=== PATIENT | female | born 1945 | race Caucasian/White ===

== ENCOUNTER 2018-04-01 19:37 | Emergency (ER) | payer BC ==
[~2018-04-01] VITALS: Ht 168.9 cm; Wt 52.3 kg
[2018-04-01 19:41] VITALS: TEMP 36.6; Ht 168.9 cm; Wt 52.3 kg
--- NOTE | 2018-04-01 20:42 | DIAGNOSTIC IMAGING REPORT ---
HEAD WITHOUT CONTRAST (CT) CLINICAL HISTORY: 72 years-old Female with CHI w/ n/v. Acute head injury status post fall TECHNIQUE: Multiple axial CT images of the head were obtained without contrast. A dose lowering technique was utilized adhering to the principles of ALARA. CT DOSE: 537.48 mGy.cm COMPARISON: None. FINDINGS: Cavum septum pellucidum. There is no acute intracranial hemorrhage, midline shift or abnormal extra-axial fluid collections. There is mild to moderate atrophy. Senescent calcifications of the lentiform nuclei are noted. Cerebral calcifications at the level of the skull base. No territorial ischemia. Partially calcified round circumscribed extra-axial mass at the vertex abutting the falx cerebri is seen on image 22 series 2 measuring 2.2 x 2.2 cm in AP and transverse dimension respectively. There is minimal mass effect upon the adjacent right frontal lobe without edema or midline shift. No hydrocephalus. Ill-defined 1.2 cm lucent lesion of the right temporal calvarium. Mastoid air cells and middle ear cavities are clear. Soft tissues are unremarkable. Orbits are symmetric. IMPRESSION: 1. No acute intracranial abnormality identified. 2. Hyperattenuating partially calcified 2.2 cm round extra-axial lesion abutting the falx cerebri near the vertex adjacent to the right frontal lobe suggests a calcified meningioma. 3. Indeterminate 1.2 cm lucent lesion of the right temporal calvarium. The above report was generated using voice recognition software. It may contain grammatical, syntax or spelling errors. Electronically signed by: Rio Acevedo M.D. 04/01/2018 8:41 PM Dictated Date/Time: 04/01/2018 8:36 PM
--- NOTE | 2018-04-01 21:55 | DIAGNOSTIC IMAGING REPORT ---
SACRUM COCCYX MIN 2 VIEWS, L-SPINE MIN 4 VIEWS ROUTINE HISTORY: 72 years-old Female LBP/sacral pain acute lumbar spine and sacral pain status post fall COMPARISON: None available TECHNIQUE: 5 views of the lumbar spine and 3 views of the sacrum and coccyx FINDINGS: LUMBAR SPINE: The bones appear mildly demineralized. 5 nonrib-bearing lumbar type vertebral segments. No acute fracture or subluxation is identified. Mild multilevel endplate spurring with moderate multilevel facet arthrosis. Mild intervertebral disc space narrowing at L5-S1. Atherosclerosis of the aorta. Moderate osteoarthritis about the bilateral hips. SACRUM/COCCYX: The bones appear mildly demineralized. No acute fracture or subluxation is identified. Moderate degenerative changes about the pubic symphysis. IMPRESSION: Mildly demineralized appearance of the bones without acute fracture or subluxation. The above report was generated using voice recognition software. It may contain grammatical, syntax or spelling errors. Electronically signed by: Rio Acevedo M.D. 04/01/2018 9:54 PM Dictated Date/Time: 04/01/2018 9:51 PM
[2018-04-01 23:01] VITALS: BP 134/84; PULSE 90; O2SAT 99
--- NOTE | 2018-04-02 01:11 | EMERGENCY ROOM VISIT NOTE ---
History First contact with patient: 19:48 Chief Complaint: FALL Stated Complaint: FELL,SORE BACK,HIT MY HEAD History of Present Illness The patient is a 72 year old female who presents to the Emergency Room with complaints of injuries after she fell backwards off of a set of bleachers, landing on her buttocks and hitting the back of her head off of the ground. There was no loss of consciousness, but the patient did report almost immediate nausea that has improved since the injury. The daughter was attempting to hold her as she was walking up the bleachers when she fell approximately 4 feet to the ground. The patient denies any aspirin or other blood thinner use. She rates her discomfort an 8 out of 10. She denies any neck pain. Review of Systems 10 system review was performed and was negative except for pertinent positives and negatives as indicated in history of present illness Past Medical/Surgical History Medical Problems: (1) Bronchitis Surgical Problems: (1) History of appendectomy (2) History of delivery (3) History of knee surgery (4) History of partial hysterectomy Family History FH: cancer FH: diabetes mellitus FH: gallbladder disease FH: heart disease FH: hypertension FH: kidney disease Social History Smoking Status: Current Every Day Smoker Alcohol Use: none Housing Status: lives alone Occupation Status: employed Current/Historical Medications No Active Prescriptions or Reported Meds Physical Exam Vital Signs Date Time Temp Pulse Resp B/P (MAP) Pulse Ox O2 Delivery O2 Flow Rate FiO2 04/01/18 23:01 90 134/84 99 04/01/18 21:55 85 16 137/84 94 04/01/18 19:41 36.6 93 18 140/85 97 Room Air Physical Exam CONSTITUTIONAL: Healthy and well nourished. Alert and oriented X 3 with positive affect. GCS 15. Patient does not appear in any acute distress. HEENT: Normocephalic, atraumatic. Pupils equal, round and reactive. No scalp hematomas or lacerations noted. NECK: Full active range of motion without discomfort. RESPIRATORY: Clear to auscultation bilaterally with no wheezing, crackles, rhonchi or stridor. CARDIOVASCULAR: Regular rate and rhythm with no murmurs, rubs or gallops. GASTROINTESTINAL: Bowel sounds present in all quadrants. Soft and nontender to palpation. MUSCULOSKELETAL: Examination shows generalized tenderness to palpation through the lower lumbar spine and sacral region. Pelvis stable with rock. Negative logroll. Negative straight leg raise. Pedal pulses are intact. INTEGUMENTARY: No rash or other significant dermatologic conditions noted. NEUROLOGIC: Upper and lower extremities are sensory intact. Medical Decision & Procedures ER Provider Diagnostic Interpretation: My interpretation of a noncontrast head CT does not show any acute fracture or intracranial bleed. A left frontal calcified meningioma is suspected, and described in the following radiologist report: HEAD WITHOUT CONTRAST (CT) CLINICAL HISTORY: 72 years-old Female with CHI w/ n/v. Acute head injury status post fall TECHNIQUE: Multiple axial CT images of the head were obtained without contrast. A dose lowering technique was utilized adhering to the principles of ALARA. CT DOSE: 537.48 mGy.cm COMPARISON: None. FINDINGS: Cavum septum pellucidum. There is no acute intracranial hemorrhage, midline shift or abnormal extra-axial fluid collections. There is mild to moderate atrophy. Senescent calcifications of the lentiform nuclei are noted. Cerebral calcifications at the level of the skull base. No territorial ischemia. Partially calcified round circumscribed extra-axial mass at the vertex abutting the falx cerebri is seen on image 22 series 2 measuring 2.2 x 2.2 cm in AP and transverse dimension respectively. There is minimal mass effect upon the adjacent right frontal lobe without edema or midline shift. No hydrocephalus. Ill-defined 1.2 cm lucent lesion of the right temporal calvarium. Mastoid air cells and middle ear cavities are clear. Soft tissues are unremarkable. Orbits are symmetric. IMPRESSION: 1. No acute intracranial abnormality identified. 2. Hyperattenuating partially calcified 2.2 cm round extra-axial lesion abutting the falx cerebri near the vertex adjacent to the right frontal lobe suggests a calcified meningioma. 3. Indeterminate 1.2 cm lucent lesion of the right temporal calvarium. X-rays of the lumbar spine and sacrum does not show any acute fractures. Radiologist report is as follows: SACRUM COCCYX MIN 2 VIEWS, L-SPINE MIN 4 VIEWS ROUTINE HISTORY: 72 years-old Female LBP/sacral pain acute lumbar spine and sacral pain status post fall COMPARISON: None available TECHNIQUE: 5 views of the lumbar spine and 3 views of the sacrum and coccyx FINDINGS: LUMBAR SPINE: The bones appear mildly demineralized. 5 nonrib-bearing lumbar type vertebral segments. No acute fracture or subluxation is identified. Mild multilevel endplate spurring with moderate multilevel facet arthrosis. Mild intervertebral disc space narrowing at L5-S1. Atherosclerosis of the aorta. Moderate osteoarthritis about the bilateral hips. SACRUM/COCCYX: The bones appear mildly demineralized. No acute fracture or subluxation is identified. Moderate degenerative changes about the pubic symphysis. IMPRESSION: Mildly demineralized appearance of the bones without acute fracture or subluxation. ED Course Patient history and physical exam were performed. Nurse's notes were reviewed. Vital signs were reviewed and were grossly normal. The patient refused any analgesics. Given the patient's age, I recommended CT of the head, which was performed and did not show any acute findings. A possible calcified hemangioma was noted. X-rays of the lumbar spine, sacrum and coccyx were also normal. I did discuss CT findings with the patient and daughter. The patient reports that she currently does not have a PCP. Her daughter reports that she will call Dr. Miller's office in the morning for follow-up appointment and follow- up. The patient was instructed to return to the emergency department for any progressively worsening symptoms. The patient reports that she will take Motrin as needed for pain. The patient was happy with plan of care, voiced understanding of all discharge instructions, and denied any significant discomfort at the conclusion of my exam. Case was also discussed with Dr. Kaufman, ED attending physician, who agrees with workup and plan of care. Medical Decision Head Trauma GCS Score: 15 Medication Reconcilliation Current Medication List: was personally reviewed by me Blood Pressure Screening Patient's blood pressure: Normal blood pressure Impression Primary Impression: Closed head injury Additional Impressions: Acute lumbar myofascial strain Pelvic contusion Calcified cerebral meningioma Departure Information Prescriptions No Active Prescriptions or Reported Meds Referrals No Doctor, Assigned (PCP) Patient Instructions My [facility] Problem Qualifiers Primary Impression: Closed head injury Encounter type: initial encounter Qualified Codes: S09.90XA - Unspecified injury of head, initial encounter Additional Impressions: Acute lumbar myofascial strain Encounter type: initial encounter Qualified Codes: S39.012A - Strain of muscle, fascia and tendon of lower back, initial encounter Pelvic contusion Encounter type: initial encounter Qualified Codes: S30.0XXA - Contusion of lower back and pelvis, initial encounter
== END 2018-04-01 22:50 | disposition home or self-care (01) ==
LOC: C.EDB 19:38 → C.EDD 22:50
DX: S09.90XA Unspecified injury of head, initial encounter (principal); S39.012A Strain of muscle, fascia and tendon of lower back, initial encounter; S30.0XXA Contusion of lower back and pelvis, initial encounter; W19.XXXA Unspecified fall, initial encounter; C70.0 Malignant neoplasm of cerebral meninges; F17.200 Nicotine dependence, unspecified, uncomplicated

== ENCOUNTER 2019-09-23 15:22 | Inpatient (IN) ==
--- OUTSIDE RECORDS SUMMARY | 2019-09-23 15:25 | External Medical Summary | Continuity of Care Document ---
:1945 Author Name Rosenda Luna, Provider Address Unavailable Unavailable , Care Team Providers Name Role Phone Devyn Hunt DO Unavailable [email or web address] HUNT Unavailable Unavailable Problems Active medical history not documented Allergies and Adverse Reactions Allergy history not documented Medications Medications not documented Procedures Procedures not documented Immunizations Immunizations not documented Plan of Treatment Planned Observations Planned Goals not documented Results No Known Results Results not documented Encounters Appointment; Devyn Hunt DO 14-Apr-2019 15:20 Encounter Diagnosis: Problem not documented
[2019-09-23] MEDS ORDERED: ONDANSETRON INJ 2 MG/ML 2 ML VIAL IV STA (15:36)
[2019-09-23] MEDS ORDERED: ACETAMINOPHEN 1,000 MG/100 ML VIAL IV STA (15:36)
[2019-09-23] MEDS ORDERED: KETOROLAC TROMETHAMINE 15 MG/ML VIAL IV ONE (15:36)
--- NOTE | 2019-09-23 15:43 | Emergency Department Note ---
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 She states that she fell on her right hip, and she complains of constant, severe right hip pain. The patient notes that movement exacerbates the pain. She complains of right elbow pain. The patient denies any neck pain, head pain, chest pain, and shoulder pain. She notes that she smokes cigarettes. The patient denies any alcohol and drug use. She denies the use of any blood thinners. Home Medications Home Medications Medication Instructions Recorded Confirmed Type No Known Home Medications 09/23/19 09/23/19 History Allergies Allergy/AdvReac Type Severity Reaction Status Date / Time Sulfa (Sulfonamide Allergy Unknown . Unverified 09/23/19 16:48 Antibiotics) Past Med/Surg History Medical History Bronchitis Acute lumbar myofascial strain (Acute) Calcified cerebral meningioma (Acute) Closed head injury (Acute) Pelvic contusion (Acute) Surgical History History of partial hysterectomy History of delivery History of appendectomy History of knee surgery Social History Preferred Language: Kenyan Feels Safe at Home: Yes Smoking Status: Current every day smoker Review of Systems See HPI for pertinent positives & negatives. and A total of 10 systems reviewed and were otherwise negative Physical Exam Vital Signs Vital Signs - 24 hr 09/23/19 15:41 09/23/19 16:33 09/23/19 17:33 Temperature 36.7 C Temperature Source Oral Sepsis Recent Fever Within 48 Hours No Sepsis New/Unexplained Change in Mental Status No Sepsis Action Taken by Nursing No Action Required Pulse Rate 85 Pulse Rate [Apical] 77 81 Respiratory Rate 20 18 18 Blood Pressure 155/78 H Blood Pressure [Left Arm] 150/78 H Blood Pressure Mean 103 Blood Pressure Mean [Left Arm] 102 Pulse Oximetry 97 100 95 Oxygen Delivery Method Room Air Room Air Room Air 09/23/19 18:55 Temperature Temperature Source Sepsis Recent Fever Within 48 Hours Sepsis New/Unexplained Change in Mental Status Sepsis Action Taken by Nursing Pulse Rate Pulse Rate [Apical] 75 Respiratory Rate 18 Blood Pressure Blood Pressure [Left Arm] 115/64 Blood Pressure Mean Blood Pressure Mean [Left Arm] 81 Pulse Oximetry 97 Oxygen Delivery Method Room Air GENERAL: The patient is awake and alert. She is very anxious appearing and appears to be in very significant pain. EYES: The conjunctivae are clear. The pupils are round and reactive. EARS, NOSE, MOUTH AND THROAT: The nose is without any evidence of any deformity. Mucous membranes are moist tongue is midline NECK: The neck is nontender and supple. RESPIRATORY: Normal respiratory effort is noted there is no evidence of wheezing rhonchi or rales CARDIOVASCULAR: Regular rate and rhythm noted there no murmurs rubs or gallops normal S1 normal S2 GASTROINTESTINAL: The abdomen is soft. Bowel sounds are present in all quadrants. Abdomen is nontender BACK: No midline tenderness or or step-off noted range of motion in flexion extension as well as rotation no signs of muscle spasm noted MUSCULOSKELETAL/EXTREMITIES: The right lower extremity is held in slight flexion. There was minimal shortening but no significant rotation. There is tenderness upon any range of motion testing of the right hip. SKIN: There is no obvious evidence of any rash. There are no petechiae, pallor or cyanosis noted. NEUROLOGIC: Patient is awake alert and oriented x3. Course 1531: The patient was evaluated in room C07. A complete history and physical exam was performed. 174: I reevaluated the patient, and she was feeling improved. 1807: I spoke with Dr. Pink, [facility] orthopedics. He will further evaluate the patient. Administered Medications Discontinued Medications Azithromycin (Zithromax) 500 mg PO NOW ONE Stop: 09/23/19 19:05 Last Admin: 09/23/19 19:18 Dose: Not Given Documented by: [id number] Acetaminophen (Ofirmev) 1,000 mg in 100 mls @ 400 mls/hr IV NOW STA Stop: 09/23/19 15:50 Last Infusion: 09/23/19 16:15 Dose: 0 mls/hr Documented by: [id number] Admin: 09/23/19 15:57 Dose: 400 mls/hr Documented by: [id number] Ketorolac Tromethamine (Toradol) 10 mg IV NOW ONE Stop: 09/23/19 15:37 Last Admin: 09/23/19 15:57 Dose: 10 mg Documented by: [id number] Ondansetron HCl (Zofran) 4 mg IV NOW STA Stop: 09/23/19 15:37 Last Admin: 09/23/19 15:57 Dose: 4 mg Documented by: [id number] Medical Decision Making Differential Diagnosis Etiologies such as fracture, dislocation, neurovascular compromise, compartment syndrome, soft tissue injury, as well as others were entertained. Medical Records Attestation: I reviewed the patient's medical records. Home Medications Current Medication List: was personally reviewed by me Laboratory Data Attestation: I reviewed the patient's lab results. Result diagrams: 09/23/19 15:48 09/23/19 15:48 Lab Results 09/23/19 09/23/19 09/23/19 Range/Units 15:48 15:48 15:48 WBC 13.93 H (4.8-10.8) K/uL RBC 4.58 (4.2-5.4) M/uL Hgb 14.4 (12.0-16.0) g/dL Hct 40.9 (37-47) % MCV 89.3 (80-100) fL MCH 31.4 (25-34) pg MCHC 35.2 (32-36) g/dL RDW Std Deviation 44.9 (36.4-46.3) fL RDW Coeff of Janki 13.6 (11.5-14.5) % Plt Count 232 (130-400) K/uL MPV 10.3 (7.4-10.4) fL Immature Gran % (Auto) 0.3 % Neut % (Auto) 88.6 % Lymph % (Auto) 5.2 % [place] % (Auto) 5.8 % Eos % (Auto) 0.0 % Baso % (Auto) 0.1 % Immature Gran # (Auto) 0.04 H (0.00-0.02) K/uL Neut # (Auto) 12.35 H (1.4-6.5) K/uL Lymph # (Auto) 0.72 L (1.2-3.4) K/uL Rincon # (Auto) 0.81 H (0.11-0.59) K/uL Eos # (Auto) 0.00 (0-0.5) K/uL Baso # (Auto) 0.01 (0-0.2) K/uL PT 10.3 (9.0-12.0) Seconds INR 1.0 (0.9-1.1) APTT 24.8 (21.0-31.0) Seconds PTT Ratio 0.9 Sodium 136 (136-145) mmol/L Potassium 3.7 (3.5-5.1) mmol/L Chloride 105 (98-107) mmol/L Carbon Dioxide 24 (21-32) mmol/L Anion Gap 8.0 (3-11) BUN 12 (7-18) mg/dl Creatinine 0.61 (0.6-1.2) mg/dl Est Cr Clr Drug Dosing 59.0 ml/min Est GFR ( Amer) 104.2 Est GFR (Non-Af Amer) 89.9 BUN/Creatinine Ratio 19.8 (10-20) Glucose 164 H (70-99) mg/dl Calcium 9.2 (8.5-10.1) mg/dl Troponin I < 0.015 (0-0.045) ng/ml Urine Color Urine Appearance (Clear) Urine pH (4.5-7.5) Ur Specific [place] (1.000-1.030) Urine Protein (Negative) Urine Glucose (UA) (Negative) Urine Ketones (Negative) Urine Blood (Negative) Urine Nitrite (Negative) Urine Bilirubin (Negative) Urine Urobilinogen (Negative) Ur Leukocyte Esterase (Negative) Blood Type Antibody Screen 09/23/19 09/23/19 Range/Units 16:42 18:38 WBC (4.8-10.8) K/uL RBC (4.2-5.4) M/uL Hgb (12.0-16.0) g/dL Hct (37-47) % MCV (80-100) fL MCH (25-34) pg MCHC (32-36) g/dL RDW Std Deviation (36.4-46.3) fL RDW Coeff of Janki (11.5-14.5) % Plt Count (130-400) K/uL MPV (7.4-10.4) fL Immature Gran % (Auto) % Neut % (Auto) % Lymph % (Auto) % [place] % (Auto) % Eos % (Auto) % Baso % (Auto) % Immature Gran # (Auto) (0.00-0.02) K/uL Neut # (Auto) (1.4-6.5) K/uL Lymph # (Auto) (1.2-3.4) K/uL R[place] # (Auto) (0.11-0.59) K/uL Eos # (Auto) (0-0.5) K/uL Baso # (Auto) (0-0.2) K/uL PT (9.0-12.0) Seconds INR (0.9-1.1) APTT (21.0-31.0) Seconds PTT Ratio Sodium (136-145) mmol/L Potassium (3.5-5.1) mmol/L Chloride (98-107) mmol/L Carbon Dioxide (21-32) mmol/L Anion Gap (3-11) BUN (7-18) mg/dl Creatinine (0.6-1.2) mg/dl Est Cr Clr Drug Dosing ml/min Est GFR ( Amer) Est GFR (Non-Af Amer) BUN/Creatinine Ratio (10-20) Glucose (70-99) mg/dl Calcium (8.5-10.1) mg/dl Troponin I (0-0.045) ng/ml Urine Color Yellow Urine Appearance Clear (Clear) Urine pH 5.5 (4.5-7.5) Ur Specific [place] 1.014 (1.000-1.030) Urine Protein Negative (Negative) Urine Glucose (UA) Negative (Negative) Urine Ketones Negative (Negative) Urine Blood Negative (Negative) Urine Nitrite Negative (Negative) Urine Bilirubin Negative (Negative) Urine Urobilinogen Negative (Negative) Ur Leukocyte Esterase Negative (Negative) Blood Type O Positive Antibody Screen NEGATIVE Imaging Data Radiologist's Impression: Radiology results as stated below per my review and the radiologist's interpretation: XR chest 1V portable CLINICAL HISTORY: Fall. COMPARISON STUDY: No previous studies for comparison. FINDINGS: Lung volumes are normal. Lungs are clear. There is no pneumothorax or pleural effusion. Cardiac size is normal. Mediastinal contours are normal. There is no evidence for pulmonary edema. Patient is mildly rotated. IMPRESSION: No acute cardiopulmonary findings. Electronically signed by: Damián Joyce M.D. 09/23/2019 4:38 PM XR hip RT 2V w pelvis CLINICAL HISTORY: fall COMPARISON: None FINDINGS: The sacroiliac joints and symphysis pubis are intact. There is cortical irregularity of the superior aspect of the right femoral neck. This raises the possibility of a nondisplaced fracture. There is moderate to severe bilateral hip osteoarthritis. Asymmetric density adjacent to the right hip is noted. IMPRESSION: 1. Cortical irregularity of the superior aspect of the right femoral neck which raises the possibility of a nondisplaced fracture. A CT of the right hip is recommended. 2. Moderate to severe bilateral hip osteoarthritis. 3. Possible right hip soft tissue swelling. Electronically signed by: Damián Joyce M.D. 09/23/2019 4:[address] hip RT wo con HISTORY: 74 years-old Female fall acute right hip pain status post fall COMPARISON: Pelvis and right hip radiographs of same day TECHNIQUE: Multiple axial CT images of the right hip were obtained without the use of IV contrast. A dose lowering technique was used consistent with the principals of ALARA. FINDINGS: Acute nondisplaced intertrochanteric fracture of the right hip without angulation or impaction. Moderate to severe right hip osteoarthritis with chondrocalcinosis. Prominent subcortical cystic changes of the femoral head are also noted. The acetabulum and imaged right hemipelvis appear intact. Calcinosis of the pubic symphysis. Urinary bladder distention. Subcutaneous edema/hematoma lateral to the right hip. No large intramuscular hematoma. Small right hip joint effusion. Arterial calcifications are noted. IMPRESSION: 1. Acute nondisplaced intratrochanteric fracture of the proximal right femur. 2. Moderate to severe right hip osteoarthritis. The above report was generated using voice recognition software. It may contain grammatical, syntax or spelling errors. Electronically signed by: Rio Acevedo M.D. 09/23/2019 5:50 PM ECG Data Attestation: I personally reviewed and interpreted this ECG as follows: Indication: + other (fall) Rate (beats per minute): 79 Rhythm: + normal sinus ECG Findings: + Other (anterior T wave inversions note) Comparison ECG Date: no prior available Blood Pressure Blood Pressure Findings: Elevated blood pressure Blood Pressure Disposition: further management by hospitalist (further managment by orthopedist) MDM Narrative The patient is a 74-year-old female who presented to the emergency department for an evaluation of right hip pain. The patient fell while she was at work. She had very significant right hip pain. Radiographic studies revealed a right subcapital hip fracture. She was treated with IV pain medication. I discussed the patient's laboratory and radiographic studies with her. Given the degree of her fracture I discussed her case with the on-call orthopedic physician. They have agreed to evaluate the patient in the emergency department for further management disposition. The patient was feeling much better on subsequent reevaluation. Likely she will require surgical intervention of this right hip fracture. I discussed this with the patient. Impression & Plan Closed fracture of right hip Discharge Plan Visit Data *Final* Discharge Date/Time: 09/23/19 20:08 Chief Complaint: Hip Pain Stated Complaint: R HIP PAIN ED Provider: Blair Paredes Discharge Problem: Closed fracture of right hip Patient Disposition: Admitted As Inpatient Discharge Instructions Interventions: ED Discharge Assessment Last Done: 09/23/19 20:08 Discharge Problem: Closed fracture of right hip Qualifiers: Encounter type: initial encounter Qualified Code(s): S72.001A - Fracture of unspecified part of neck of right femur, initial encounter for closed fracture The awildaibdee's documentation has been prepared under my direction and personally reviewed by me in its entirety. I confirm that the note above accurately refl ects all work, treatment, procedures, and medical decision making performed by me.
[2019-09-23 16:00] LABS: Basophils # (auto) 0.01 K/uL (0-0.2); Basophils % (auto) 0.1 %; Hematocrit (blood only) 40.9 % (37-47); Hemoglobin 14.4 g/dL (12.0-16.0); Immature Granulocytes # (auto) 0.04 K/uL (0.00-0.02); Immature Granulocytes % (auto) 0.3 %; Lymphocytes # (auto) 0.72 K/uL (1.2-3.4); Lymphocytes % (auto) 5.2 %; Mean Corpuscular Hemoglobin 31.4 pg (25-34); Mean Corpuscular Hgb Conc 35.2 g/dL (32-36); Mean Corpuscular Volume 89.3 fL (80-100); Mean Platelet Volume 10.3 fL (7.4-10.4); Monocytes # (auto) 0.81 K/uL (0.11-0.59); Monocytes % (auto) 5.8 %; Neutrophils # (auto) 12.35 K/uL (1.4-6.5); Neutrophils % (auto) 88.6 %; Platelet Count 232 K/uL (130-400); RDW Coefficient of Variation 13.6 % (11.5-14.5); RDW Standard Deviation 44.9 fL (36.4-46.3); Red Blood Count 4.58 M/uL (4.2-5.4); White Blood Count 13.93 K/uL (4.8-10.8)
[2019-09-23 16:09] LABS: Partial Thromboplastin Ratio 0.9; Partial Thromboplastin Time 24.8 Seconds (21.0-31.0); Prothrombin Time 10.3 Seconds (9.0-12.0)
[2019-09-23 16:15] LABS: BUN Creatinine Ratio 19.8 (10-20); Blood Urea Nitrogen 12 mg/dl (7-18); Calcium 9.2 mg/dl (8.5-10.1); Carbon Dioxide 24 mmol/L (21-32); Chloride 105 mmol/L (98-107); Est GFR (African American) 104.2; Est GFR (Non-African American) 89.9; Glucose 164 mg/dl (70-99); Potassium 3.7 mmol/L (3.5-5.1); Sodium 136 mmol/L (136-145)
[2019-09-23 16:21] LABS: Troponin I < 0.015 ng/ml (0-0.045)
--- NOTE | 2019-09-23 16:39 | XRay Report ---
XR chest 1V portable CLINICAL HISTORY: Fall. COMPARISON STUDY: No previous studies for comparison. FINDINGS: Lung volumes are normal. Lungs are clear. There is no pneumothorax or pleural effusion. Car diac size is normal. Mediastinal contours are normal. There is no evidence for pulmonary edema. Patie nt is mildly rotated. IMPRESSION: No acute cardiopulmonary findings. Electronically signed by: Damián Joyce M.D. 09/23/2019 4:38 PM
--- NOTE | 2019-09-23 16:43 | XRay Report ---
XR hip RT 2V w pelvis CLINICAL HISTORY: fall COMPARISON: None FINDINGS: The sacroiliac joints and symphysis pubis are intact. There is cortical irregularity of th e superior aspect of the right femoral neck. This raises the possibility of a nondisplaced fracture. There is moderate to severe bilateral hip osteoarthritis. Asymmetric density adjacent to the right hi p is noted. IMPRESSION: 1. Cortical irregularity of the superior aspect of the right femoral neck which raises the possibilit y of a nondisplaced fracture. A CT of the right hip is recommended. 2. Moderate to severe bilateral hip osteoarthritis. 3. Possible right hip soft tissue swelling. Electronically signed by: Damián Joyce M.D. 09/23/2019 4:42 PM
--- NOTE | 2019-09-23 17:52 | CT Scan Report ---
CT hip RT wo con HISTORY: 74 years-old Female fall acute right hip pain status post fall COMPARISON: Pelvis and right hip radiographs of same day TECHNIQUE: Multiple axial CT images of the right hip were obtained without the use of IV contrast. A dose lowering technique was used consistent with the principals of ALARA. FINDINGS: Acute nondisplaced intertrochanteric fracture of the right hip without angulation or impaction. Moder ate to severe right hip osteoarthritis with chondrocalcinosis. Prominent subcortical cystic changes o f the femoral head are also noted. The acetabulum and imaged right hemipelvis appear intact. Calcinos is of the pubic symphysis. Urinary bladder distention. Subcutaneous edema/hematoma lateral to the rig ht hip. No large intramuscular hematoma. Small right hip joint effusion. Arterial calcifications are noted. IMPRESSION: 1. Acute nondisplaced intratrochanteric fracture of the proximal right femur. 2. Moderate to severe right hip osteoarthritis. The above report was generated using voice recognition software. It may contain grammatical, syntax o r spelling errors. Electronically signed by: Rio Acevedo M.D. 09/23/2019 5:50 PM
[2019-09-23] MEDS ORDERED: AZITHROMYCIN 250 MG TAB PO ONE (19:04)
[2019-09-23 19:15] LABS: Appearance Urine Clear (Clear); Bilirubin Urine Negative (Negative); Blood Urine Negative (Negative); Color Urine Yellow; Glucose Urine UA Negative (Negative); Ketones Urine Negative (Negative); Leukocyte Esterase Urine Negative (Negative); Nitrite Urine Negative (Negative); Protein Urine Negative (Negative); Specific Gravity Urine 1.014 (1.000-1.030); Urobilinogen Urine Negative (Negative); pH Urine 5.5 (4.5-7.5)
--- NOTE | 2019-09-23 20:12 | History and Physical Report ---
DATE OF ADMISSION: 09/23/2019 CHIEF COMPLAINT: Right hip pain. 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 Elbow was fine. She was able to walk afterwards but had significant right hip pain. She was brought to the ER where evaluation revealed a fracture. She has seen a chiropractor previously for soreness in her hips. She denies prior history of right hip injuries. Her chiropractor told her that she did have arthritis in her hips. Pain is in the right groin currently. PAST MEDICAL HISTORY: Significant for shingles and Lyme disease. PAST SURGICAL HISTORY: Appendectomy, tonsillectomy, hysterectomy, right knee surgery. ALLERGIES: SULFA, REACTION UNKNOWN. REVIEW OF SYSTEMS: She has had Lyme disease, shingles, occasional irregular heartbeat. She does not see a regular medical doctor. She denies metal allergy, bleeding, blood clots, heart attack, stroke, lung disease, cancer, diabetes, heart attack. MEDICATIONS: None. SOCIAL HISTORY: She does not drink but smokes half a pack of cigarettes for the past 45 years. PHYSICAL EXAMINATION: MUSCULOSKELETAL: The right hip is nontender, swollen or ecchymotic. She is unable to do a leg lift. She can bend her knee about 30 degrees, but has pain in the right hip. The remainder of the right lower extremity is nontender with 1+ dorsalis pedis and posterior tibial pulses. 5/5 ankle and toe plantar flexion and dorsiflexion strength with normal sensation in the right foot. She can move both upper extremities without difficulty as well as her left leg. HEAD: Atraumatic. RESPIRATORY: Breath sounds are distant but chest is clear. HEART: Regular in rate and rhythm. I do not detect an audible murmur. ABDOMEN: Soft, nontender with active bowel sounds. LABORATORY VALUES: Reviewed. White count is 14, likely secondary to stress. She is not anemic. PT/INR within normal limits. PRP is noted. Glucose is high. UA negative. Chest x-ray negative. X-rays of the hip as well as a CT show bilateral hip arthritis with decreased bone density. There is a nondisplaced fracture on the anterior aspect of the right hip. This is low on the neck and high on the intertrochanteric region and is probably a nondisplaced basicervical type fracture. IMPRESSION: 1. Nondisplaced right hip basicervical versus intertrochanteric fracture of the right hip. 2. History of tobacco abuse and probable osteoporosis. PLAN: Findings are discussed. I have recommended admission to the hospital and surgery. Surgery was done to promote mobility and prevent fracture displacement. We talked about the risks of nonsurgical management. An informed consent was obtained. She is educated about the surgical procedure, risks, benefits, rehab and recovery. She will be admitted to my service and n.p.o. after midnight with medicine consulting. Plan will be for short troch nail tomorrow morning. SCDs for DVT prophylaxis. I did discuss with her that she has arthritis of her hip, which is the likely cause of her soreness. I think given the situation that fracture fixation in the absence of substantial ongoing hip arthritic complaints is a reasonable consideration, particularly given the fracture geometry being more of an intertrochanteric fracture versus a femoral neck type injury.
[2019-09-23] MEDS ORDERED: ONDANSETRON INJ 2 MG/ML 2 ML VIAL IV PRN (20:22)
[2019-09-23] MEDS ORDERED: MoRPHine SULFATE 2 MG/ML CARP IV PRN (20:22)
[2019-09-23] MEDS ORDERED: BISACODYL 10 MG SUPP PR PRN (20:22)
[2019-09-23] MEDS ORDERED: NALOXONE HCL 0.4 MG/1 ML VIAL/CARP IV PRN (20:22)
[2019-09-23] MEDS ORDERED: MAGNESIUM HYDROXIDE SUSP 30 ML UDC PO PRN (20:22)
--- NOTE | 2019-09-23 20:33 | Consultation Report ---
DATE OF CONSULTATION: 09/23/2019 CHIEF COMPLAINT: Status post fall and right hip pain. HISTORY OF PRESENT ILLNESS: This is a 74-year-old female with past medical history significant for Lyme disease and [place] infection, not on any medications currently and has not seen a doctor for many, many years, comes with a fall and right hip fracture. 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 She was out of her vehicle and on the pavement in the parking place when she slipped and fell down around 9:00 a.m. in the morning. With difficulty, she was able to get up. She did not want to come to the hospital until her work is done because it is a busy season and came here and imaging studies shows acute nondisplaced intertrochanteric fracture of the proximal right femur. Seen by orthopedics. Currently, she says when she is not moving, her pain is under control and she also received pain medications in the ER. She does not like to be on narcotics. She lives alone. She moved into a new house recently and that is why she is not sleeping much because of new place. Her appetite is not great generally. She smokes half a pack of cigarettes since she was 19 years old. Denies any headache, no loss of consciousness, no blurred vision, no earache, no runny nose, no sore throat, no cough, no chest pain, no shortness of breath.She was nauseous earlier. No abdominal pain. Once in a while, she gets constipated, but right now her bowels are moving fine. No black stools or hematochezia. Normal bladder movements. No hematuria or burning micturition, no swelling in the legs, no rash. She says she ambulates a lot. Most of the time, she is on her feet most of the day for her work. She says she does not get short of breath walking up hill. She states she can easily walk 2 blocks without stopping. Currently resting comfortably and hemodynamically stable. ALLERGIES: SULFA ANTIBIOTICS. PAST MEDICAL HISTORY: As mentioned above. PAST SURGICAL HISTORY: She had right knee surgery, appendectomy, partial hysterectomy, tonsillectomy, left foot ingrown nail. MEDICATIONS: None. FAMILY HISTORY: Mother at age of 91. She had CABG and CHF and diabetes. Father had stroke. One brother had stroke. Another brother had cardiac stents. SOCIAL HISTORY: Lives alone. Smokes half pack a day since 55 years. Denies alcohol and drug use. REVIEW OF SYMPTOMS: As per HPI. Rest of the review of symptoms is negative. PHYSICAL EXAMINATION: GENERAL: The patient is of somewhat thin built, not in acute distress. VITAL SIGNS: Temperature 36.7, pulse 75, respiratory rate 18, blood pressure 115/64, oxygen 97% on room air. HEENT: No pallor, no icterus. Pupils equal, round, reactive to light. Extraocular muscles intact. NECK: No JVD, no neck masses, no carotid bruit. CARDIOVASCULAR: S1, S2 heard, regular rate and rhythm, no murmur, no gallop. RESPIRATORY SYSTEM: Normal AP diameter. No accessory muscle use. No wheezing, no crackles. ABDOMEN: Soft, bowel sounds present, nontender. No distention, no guarding, no rigidity. CENTRAL NERVOUS SYSTEM: Alert and awake and oriented. Cranial nerves II-XII grossly intact. Nonfocal. EXTREMITIES: Right lower extremity is slightly shortened and externally rotated and painful on movement. No erythema. No edema seen. LABORATORY DATA: WBC 13.9, hemoglobin 14.4, hematocrit 40.9, platelets 232. PT 10.3, INR 1, APTT 24.8. Sodium 136, potassium 3.7, chloride 105, bicarbonate 24, BUN 12, creatinine 0.6, serum glucose 164, calcium 9.2. Troponin I less than 0.015. Urinalysis negative. Chest x-ray, no acute findings. Hip and pelvic x-ray; cortical irregularity of the superior aspect of the right femoral neck, which raises the possibility of a nondisplaced fracture. CT of the right hip is recommended. [id number] bilateral hip osteoarthritis, possible right hip soft tissue swelling. Right hip CT scan without contrast; acute nondisplaced intertrochanteric fracture of the proximal right femur, [id number] right hip osteoarthritis. ELECTROCARDIOGRAM: Normal sinus rhythm with a rate of 79, nonspecific T-wave abnormalities, no acute ST-T changes seen. ASSESSMENT AND PLAN: This is a 74-year-old female who presents with mechanical fall and right hip fracture. 1. Mechanical fall and right hip fracture. The patient has no significant past medical history. She says she is very active and she ambulates a lot every day at her work. Except for tobacco abuse, no risk factors. Laboratories are all fine. CBC and electrolytes are fine. Urinalysis negative. Chest x-ray and EKG are fine. The patient should be at acceptable risk to proceed with surgery. Post-surgery management as per orthopedics. N.p.o. after midnight. Gentle fluids, pain control with Tylenol and Toradol. 2. Deep venous thrombosis prophylaxis as per orthopedics. 3. Disposition: Admit to medical floor. Physical therapy and occupational therapy and further disposition as per orthopedics. MTDD
[2019-09-23] MEDS: DOCUSATE SODIUM/SENNA 50/8.6MG TAB PO SCH (21:16)
[2019-09-23] MEDS: D5W AND 1/2NSS 1,000 ML IV SCH (21:30)
[2019-09-24] MEDS ORDERED: CEFAZOLIN 2000MG 2,000 MG/15 ML SYR IV SCH (06:00)
--- NOTE | 2019-09-24 07:54 | Anesthesiology Consultation ---
Date of Service September 24, 2019 Assessment & Plan (1) Encounter for pre-operative examination: Chart Review Chart Review: Acceptable Risk for Surgery Consults Requested none ASA ASA3 Proposed Anesthesia Anesthesia Type: MAC Spinal Risk / Benefits Reviewed With: PT / POA / Parent / Guardian, Accepts Plan and Informed Consent Obtained History Surgery Operation Date: 09/24/19 10:30 Proposed Procedures p Intramedullary Edwar Femur - Taiwo Pink MD Height/Weight Height: 5 ft 6 in Weight: 50 kg Allergies Allergy/AdvReac Type Severity Reaction Status Date / Time Sulfa (Sulfonamide Allergy Unknown . Unverified 09/23/19 16:48 Antibiotics) Medications Home Medications Medication Instructions Recorded Confirmed Last Taken No Known Home Medications 09/23/19 09/23/19 Unknown Active Medications Generic Name Dose Route Start Last Admin Trade Name Freq PRN Reason Stop Dose Admin Dextrose/Sodium Chloride 1,000 mls @ 75 mls/hr 09/23/19 20:22 09/23/19 21:30 D5w And 1/2nss IV 10/23/19 20:21 75 mls/hr .[id number] KAROLINA Administration Senna/Docusate Sodium 2 tab 09/23/19 21:00 09/23/19 21:16 Senokot S PO 10/23/19 20:59 Not Given HS KAROLINA NPO Date Last Intake of Fluids: 09/23/19 Time Last Intake of Fluids: 23:59 Date Last Intake of Solids: 09/23/19 Time Last Intake of Solids: 23:59 Past Medical History Medical History Bronchitis Acute lumbar myofascial strain (Acute) Calcified cerebral meningioma (Acute) Closed head injury (Acute) Pelvic contusion (Acute) Exercise / Class Metabolic Activity II 4-5 Yardwork/Stairs/Walk up hill Past Surgical History Surgical History History of partial hysterectomy History of delivery History of appendectomy History of knee surgery Past Anesthesia History No Hx of Anesthesia Complications and No Family Hx of Anesthesia Complications History of PONV No Hx of PONV and No Hx of Motion Sickness Social History Smoking Status: Current every day smoker tobacco type: cigarettes Smoking cigarettes per day: 10 Hx Alcohol Use: No Hx Substance Use: No Physical Exam Vital Signs Last Vital Signs Temp 97.9 F 09/24/19 07:49 Pulse 72 09/24/19 07:49 Resp 16 09/24/19 07:49 BP 127/73 09/24/19 07:49 Pulse Ox 96 09/24/19 07:49 ENMT Mouth: no dentition abnormality Thyromental Distance: > or= 3.5 Finger Breadths Mallampati Class: II Neck normal visual inspection Respiratory normal respiratory effort Auscultation: lungs clear to auscultation bilaterally Cardiovascular Rate/Rhythm: regular rate and regular rhythm Testing Laboratory Results 09/23/19 15:48 09/23/19 15:48 PT 10.3 Seconds (9.0-12.0) 09/23/19 15:48 INR 1.0 (0.9-1.1) 09/23/19 15:48 APTT 24.8 Seconds (21.0-31.0) 09/23/19 15:48 Urine Color Yellow 09/23/19 18:38 Urine Appearance Clear (Clear) 09/23/19 18:38 Urine pH 5.5 (4.5-7.5) 09/23/19 18:38 Ur Specific [place] 1.014 (1.000-1.030) 09/23/19 18:38 Urine Protein Negative (Negative) 09/23/19 18:38 Urine Glucose (UA) Negative (Negative) 09/23/19 18:38 Urine Ketones Negative (Negative) 09/23/19 18:38 Urine Nitrite Negative (Negative) 09/23/19 18:38 Ur Leukocyte Esterase Negative (Negative) 09/23/19 18:38 Blood Type O Positive 09/23/19 16:42 Antibody Screen NEGATIVE 09/23/19 16:42 Electrocardiogram Date: 09/23/19 Normal sinus rhythm, rate 79 bpm Nonspecific T wave abnormality Abnormal ECG No previous ECGs available Chest X-Ray Date: 09/23/19 Findings: + NAD
[2019-09-24] MEDS ORDERED: ePHEDrine sulfate 50 MG/ML AMP IV PRN (08:06)
[2019-09-24] MEDS ORDERED: fentaNYL citrate 100 MCG/2 ML VIAL IV PRN (08:06)
[2019-09-24] MEDS ORDERED: ONDANSETRON INJ 2 MG/ML 2 ML VIAL IV PRN (08:06)
[2019-09-24] MEDS ORDERED: ATROPINE SULFATE 0.1 MG/ML 10ML SYR IV PRN (08:06)
[2019-09-24] MEDS ORDERED: fentaNYL citrate 100 MCG/2 ML VIAL ONE (08:08)
[2019-09-24] MEDS ORDERED: MIDAZOLAM HCL 1 MG/ML 2ML VIAL ONE ×2 (08:08→09:03)
--- NOTE | 2019-09-24 08:09 | History & Physical Bridge Note ---
Date of Service September 24, 2019 History & Physical Bridge Note I have examined the patient, reviewed the History & Physical and in the interval since the performance of the History & Physical I have noted the following changes of clinical significance: no changes noted
[2019-09-24] MEDS ORDERED: PROPOFOL IV EMULSION 10 MG/ML 20 ML VIAL IV ONE ×2 (08:13→10:21)
[2019-09-24] MEDS ORDERED: LIDOCAINE HCL 2% 2 ML VIAL/AMP(20MG/ML) INFIL ONE (08:13)
[2019-09-24] MEDS ORDERED: BUPIVACAINE 0.5 % 5 MG/1 ML PF 10ML VIAL ONE (08:55)
[2019-09-24] MEDS ORDERED: CEFAZOLIN 250 MG/ML 1 GM VIAL ONE (08:57)
[2019-09-24] MEDS ORDERED: ONDANSETRON INJ 2 MG/ML 2 ML VIAL ONE (09:18)
[2019-09-24] MEDS ORDERED: ePHEDrine sulfate 50 MG/ML SYR ONE (09:18)
[2019-09-24] MEDS ORDERED: PHENYLEPHRINE 100MCG/ML 5ML SYR ONE (09:23)
[2019-09-24] MEDS ORDERED: CEFAZOLIN 1000MG 1,000 MG/7.5 ML SYR IV ONE (09:40)
--- NOTE | 2019-09-24 10:46 | Fluoroscopy Report ---
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 Satisfactory alignment. Right hip osteoarthritis redemonstrated. Vascular calcificatio ns. Expected postsurgical soft tissue swelling and deep tissue air. IMPRESSION: Fluoroscopic assistance as above. Please see operative report for further details. The above report was generated using voice recognition software. It may contain grammatical, syntax o r spelling errors. Electronically signed by: Rio Acevedo M.D. 09/24/2019 10:44 AM
--- NOTE | 2019-09-24 11:24 | Operative Report ---
Post Operative Report Pre & Post Diagnosis Operation Date: 09/24/19 10:30 Pre-Op Diagnosis: Acute nondisplaced intratrochanteric versus basicervical fracture of the proximal right femur. Post-Op Diagnosis: Acute nondisplaced intratrochanteric versus basicervical fracture of the proximal right femur. I identified the patient and participated in the time-out.: Yes Procedure Operation Date: 09/24/19 10:30 Actual Procedures p Right short intramedullary Trochanteric Fixation Nail (Right) - Taiwo Pink MD Surgeon Taiwo Pink MD Institutional Research Director None Estimated Blood Loss 20 Findings Consistent with Post-Op Diagnosis Specimens None Drains None Anesthesia Type Spinal MAC Complications none Disposition Accompanied Patient To Recovery: No Disposition: Recovery Room Indications Patient is 74 years old. She is status post a work-related injury in which she fell and sustained a nondisplaced incomplete fracture of the right hip basicervical femoral neck or intertrochanteric region. Options discussed and I recommended surgery and she agrees to proceed. She was seen and evaluated by medicine preoperatively. Description of Procedure Informed consent obtained. I identified the patient. Preop surgical timeout was performed. A preop dose of intravenous antibiotics was given. She was taken to the operating room after administration of the anesthetic. She was positioned on the fracture table. Due to limited mobility of her left hip she was placed into knee and hip extended scissors position with the right leg up left leg down. The table was air planed towards the contralateral side. Care was taken to prevent displacement of the fracture. She was placed into some gentle longitudinal traction. Torso was shifted to the opposite side of the table and arms were folded over her chest with eggcrate and swaddled with a papoose secured with tape and safety strap. Her feet were well-padded with Kerlix ABD and secured in place with the traction boots and co-band. Fluoroscopic images were obtained to ensure visualization and proper reduction of the fracture. The fracture is nondisplaced and alignment was anatomic. The right hip was prepped and draped in the usual sterile fashion using the shower curtain and C. [place]. Bony prominences were inspected and padded. DVT prophylaxis will be done with Lovenox postoperatively and early mobility. A 5 cm incision was made just proximal to the tip at the greater trochanter and in line with the shaft of the femur. Electrocautery was utilized down to the subcutaneous tissues and hip abductor fascia. The tip of the greater trochanter was identified and a guidepin was introduced and adjusted x2 to be at the appropriate location in line with the shaft of the femur on the lateral view and at the tip of the trochanter on the AP. The 17 mm reamer was introduced down to the level of the lesser trochanter under fluoroscopic guidance. A long guidewire was introduced confirmed to be intramedullary in AP and lateral planes. A 130 degree angled 12 mm diameter by 170 short Synthes trochanteric femoral nail was introduced under hand power. Rotation was determined based upon the lateral view aligning the handle. The guidepin was introduced and was found to be slightly inferior. The implant was backed out 5 mm. The guidepin was reintroduced and found to be in the good position on the AP but slightly anterior on the lateral. This was adjusted x2 to be just below center on the AP and direct center of the head on the lateral view. The neck was clear. Using the triple trocar and through an accessory cystic incision the lateral cortex was broached followed by the triple reamer. Length was selected to be 85 mm for the tri-flange screw which was introduced under hand power and fluoroscopic guidance. This was seated within 5 mm on the AP and approximately 7 mm on the lateral. The proximal locking apparatus was advanced. A distal interlocking screw was inserted through the guide. Fluoroscopic imaging confirmed reduction of the fracture and positioning the hardware in AP and lateral planes. I then went ahead and removed the insertion handle. Wounds were irrigated with sterile saline. The distal incision for the screw was closed with 2-0 Vicryl. The middle incision was closed with 0 Vicryl for the deep subcu and 2-0 Vicryl on the skin. The proximal incision was closed with #1 Vicryl on the gluteal fascia 0 Vicryl for the deep subcutaneous fat and 2-0 Vicryl for the dermal layer. Meticulous hemostasis was achieved with electrocautery and yi were applied followed by a soft sterile dressing Xeroform 4 x 4's ABD foam tape. Patient was taken off of the fracture table without difficulty and transported to the recovery room in stable condition. There were no specimens or complications. Counts were correct. Blood loss is estimated to be 20 cc. At the conclusion the operation spoke patient's family and informed of my findings. Detailed postoperative instructions were discussed. She will be admitted to the hospital. DVT prophylaxis with Lovenox will be done. She may weight-bear as tolerated with walker. fast food services manager consult for possible placement at snf facility versus acute care rehab. Routine course of postop intravenous antibiotics. The distal interlocking screw was 34 mm in length. Bone quality appeared to be at least osteopenic. I attest to the content of the Intraoperative Record and any orders documented therein. Any exceptions are noted below.
--- NOTE | 2019-09-24 11:27 | Anesthesiology Progress Note ---
Date of Service September 24, 2019 Anesthesia Post Procedure Vital Signs Vital Signs: Temp Pulse Pulse Pulse Resp BP BP 09/24/19 11:20 72 18 116/62 09/24/19 11:10 64 18 120/70 09/24/19 11:00 85 20 109/81 09/24/19 10:53 97.5 F L 67 18 111/81 09/24/19 08:08 97.7 F 72 18 125/65 09/24/19 07:49 97.9 F 72 16 127/73 09/23/19 23:40 97.9 F 75 18 103/60 09/23/19 20:36 73 18 121/68 09/23/19 20:08 98 H 18 130/72 09/23/19 18:55 75 18 115/64 09/23/19 17:33 81 18 09/23/19 16:33 77 18 150/78 H 09/23/19 15:41 98.1 F 85 20 155/78 H Pulse Ox 09/24/19 11:20 94 09/24/19 11:10 100 09/24/19 11:00 99 09/24/19 10:53 99 09/24/19 08:08 96 09/24/19 07:49 96 09/23/19 23:40 96 09/23/19 20:36 94 09/23/19 20:08 95 09/23/19 18:55 97 09/23/19 17:33 95 09/23/19 16:33 100 09/23/19 15:41 97 Pain Intensity Right Hip: Pain Intensity: 7 Transfer of Care Handoff Completed per policy Notes Mental Status: alert / awake / arousable and participated in evaluation Patient Amnestic to Procedure: Yes Nausea / Vomiting: adequately controlled Pain: adequately controlled Airway Patency, RR, SpO2: stable & adequate BP & HR: stable & adequate Hydration State: stable & adequate Neuraxial Anesthesia: was administered and sensory block is resolving Anesthetic Complications: no major complications apparent and Pt Satisfied with anesthetic care
[2019-09-24] MEDS ORDERED: HYDROmorphone INJ 0.5 MG/0.5 ML SYR IV PRN (12:08)
[2019-09-24] MEDS ORDERED: NALOXONE HCL 0.4 MG/1 ML VIAL/CARP IV PRN (12:08)
[2019-09-24] MEDS ORDERED: KETOROLAC TROMETHAMINE 15 MG/ML VIAL IV PRN (12:08)
[2019-09-24] MEDS ORDERED: METOCLOPRAMIDE HCL INJ 5 MG/ML 2 ML VIAL IV PRN (12:08)
[2019-09-24] MEDS ORDERED: ALUMINUM/MAGNESIUM SUSP 30 ML UDC PO PRN (12:08)
[2019-09-24] MEDS ORDERED: TRAMADOL HCL 50 MG TABLET PO PRN (12:08)
[2019-09-24] MEDS: D5W AND 1/2NSS 1,000 ML IV SCH ×2 (12:24→23:49)
[2019-09-24] MEDS: OXYCODONE HCL IR 5 MG TAB (IMMEDIATE RELEASE) PO PRN ×2 (13:52→21:16)
[2019-09-24] MEDS: ACETAMINOPHEN 325 MG TAB PO PRN ×2 (16:09→22:45)
[2019-09-24] MEDS: CEFAZOLIN 1000MG 1,000 MG/7.5 ML SYR IV SCH ×2 (16:09→23:49)
[2019-09-24] MEDS: ASCORBIC ACID 500 MG TAB PO SCH (16:10)
--- NOTE | 2019-09-24 17:55 | Hospitalist Progress Note ---
Date of Service September 24, 2019 Assessment & Plan (1) Closed fracture of right hip: Patient lost lost her balance/slipped on the pavement-leading to acute nondisplaced inter-trochanteric fracture of proximal right femur Mechanical fall No prior complaint of dizzy spell lightheadedness or chest pain before or after fall Orthopedics consulted, appreciate input Status post ORIF of right hip Continue pain control post operatively Patient remains stable hemodynamically Repeat H&H in a.m. to assess acute blood loss anemia PT OT as per orthopedics recommendation CODE STATUS: Full code DVT prophylaxis: As per post hip fracture protocol by orthopedic Disposition: To be determined, She was very active, was independent and living alone Will have PT OT evaluation-deter mine need for rehab versus returning home with home PT Subjective Status post ORIF of right proximal femur fracture-today Patient seen after procedure in room 302 Postoperative day 0 Had 10 out of 10 pain on her right hip surgical site Given oxycodone leading to improvement of symptom No complaint of shortness of breath, no fever or chills Physical Exam Constitutional: WD/WN, vitals as above no acute distress Eyes: + anicteric sclerae ENMT: external ear and nose normal, oropharynx normal Neck: trachea midline, no thyromegaly Respiratory: normal respiratory effort, lungs clear to auscultation Cardiovascular: RRR, no murmur, no edema Gastrointestinal (Abdomen): normal bowel sounds, soft, nontender, no hepatosplenomegaly Musculoskeletal: Hip: + surgical incision (Status post right hip surgery, bandage present) Skin: no rashes, warm and dry Neurologic: PERRL, EOMI, accommodation nl, no face palsy, no dysarthria Psychiatric: A+Ox3, euthymic affect Results & Data Vital Signs (Past 12 Hours) Vital Signs Temp Pulse Resp BP Pulse Ox 09/24/19 15:05 37 C 84 16 114/63 92 09/24/19 14:05 36.9 C 84 16 131/71 95 09/24/19 13:05 86 16 126/72 97 09/24/19 12:31 36.2 C L 74 16 112/64 95 09/24/19 12:05 36.5 C 79 16 131/71 94 09/24/19 11:32 37.0 C 69 20 123/64 94 09/24/19 11:24 37.0 C 64 18 121/89 94 09/24/19 11:20 72 18 116/62 94 09/24/19 11:10 64 18 120/70 100 09/24/19 11:00 85 20 109/81 99 09/24/19 10:53 36.4 C L 67 18 111/81 99 09/24/19 08:08 36.5 C 72 18 125/65 96 09/24/19 07:49 36.6 C 72 16 127/73 96 (1) Closed fracture of right hip Encounter type: initial encounter Qualified Code(s): S72.001A - Fracture of unspecified part of neck of right femur, initial encounter for closed fracture
--- NOTE | 2019-09-24 18:34 | Progress Note ---
DATE: 09/24/2019 She is sitting in her chair. No issues reported. Pain is well controlled. We discussed the results of the operation. Her vital signs are stable. She is afebrile. Urine output 550 mL. Posterior tib 1+. Sensation intact ankle and toe plantar flexion, dorsiflexion 5/5. PLAN: Continue routine postop care. She is stable postoperatively and we will look for disposition depending on how she does with PT tomorrow.
[2019-09-24] MEDS: DOCUSATE SODIUM/SENNA 50/8.6MG TAB PO SCH (21:10)
[2019-09-24] MEDS: ENOXAPARIN INJ 30 MG/0.3 ML SYR SQ SCH (21:10)
[2019-09-25 05:26] LABS: Basophils # (auto) 0.04 K/uL (0-0.2); Basophils % (auto) 0.6 %; Eosinophils % (auto) 1.4 %; Hematocrit (blood only) 34.5 % (37-47); Hemoglobin 11.4 g/dL (12.0-16.0); Immature Granulocytes # (auto) 0.02 K/uL (0.00-0.02); Immature Granulocytes % (auto) 0.3 %; Lymphocytes # (auto) 1.92 K/uL (1.2-3.4); Lymphocytes % (auto) 26.6 %; Mean Corpuscular Hemoglobin 30.6 pg (25-34); Mean Corpuscular Volume 92.5 fL (80-100); Mean Platelet Volume 10.3 fL (7.4-10.4); Monocytes # (auto) 0.93 K/uL (0.11-0.59); Monocytes % (auto) 12.9 %; Neutrophils # (auto) 4.21 K/uL (1.4-6.5); Neutrophils % (auto) 58.2 %; Platelet Count 165 K/uL (130-400); RDW Coefficient of Variation 13.8 % (11.5-14.5); RDW Standard Deviation 46.9 fL (36.4-46.3); Red Blood Count 3.73 M/uL (4.2-5.4); White Blood Count 7.22 K/uL (4.8-10.8)
[2019-09-25 05:30] LABS: Calcium 8.4 mg/dl (8.5-10.1); Est GFR (African American) 101.1; Est GFR (Non-African American) 87.2; Potassium 3.6 mmol/L (3.5-5.1)
[2019-09-25] MEDS: ASCORBIC ACID 500 MG TAB PO SCH ×2 (08:34→16:55)
[2019-09-25] MEDS: MULTIVITAMIN TAB PO SCH (08:34)
[2019-09-25] MEDS: OXYCODONE HCL IR 5 MG TAB (IMMEDIATE RELEASE) PO PRN ×2 (10:11→18:04)
[2019-09-25] MEDS ORDERED: ERGOCALCIFEROL 50,000 UNITS CAP PO ONE (11:27)
--- NOTE | 2019-09-25 12:15 | Orthopedic Progress Note ---
Date of Service September 25, 2019 Assessment & Plan (1) Intertrochanteric fracture of right hip: Plan for snf facility. Continue PT and OT. Lovenox. Present on Admission?: Yes (2) Acute blood loss anemia: Stable and asymptomatic. Requires no treatment. Present on Admission?: No (3) Tobacco abuse: Recommend smoking cessation and will provide literature. Present on Admission?: Yes (4) Vitamin D deficiency: Supplementation. Present on Admission?: Yes Subjective Sitting in a chair. Pain is well controlled. Did well with rehab. We talked about her options. She really does not have anybody to help her out at home on a consistent basis. We agreed to a referral to [facility]. Physical Exam Physical Exam: Able to extend the knee. Motor function 5 out of 5 ankle and toes. Posterior tib is 1+ sensation intact there is no swelling. Results & Data Vital Signs (Past 12 Hours) Vital Signs Temp Pulse Resp BP Pulse Ox 09/25/19 07:15 36.7 C 71 16 108/58 L 95 09/25/19 03:40 36.8 C 69 16 95/52 L 96 Laboratory Results 09/25/19 09/25/19 Range/Units 04:56 04:56 WBC 7.22 (4.8-10.8) K/uL RBC 3.73 L (4.2-5.4) M/uL Hgb 11.4 L D (12.0-16.0) g/dL Hct 34.5 L (37-47) % MCV 92.5 (80-100) fL MCH 30.6 (25-34) pg MCHC 33.0 (32-36) g/dL RDW Std Deviation 46.9 H (36.4-46.3) fL RDW Coeff of Janki 13.8 (11.5-14.5) % Plt Count 165 (130-400) K/uL MPV 10.3 (7.4-10.4) fL Immature Gran % (Auto) 0.3 % Neut % (Auto) 58.2 % Lymph % (Auto) 26.6 % [place] % (Auto) 12.9 % Eos % (Auto) 1.4 % Baso % (Auto) 0.6 % Immature Gran # (Auto) 0.02 (0.00-0.02) K/uL Neut # (Auto) 4.21 (1.4-6.5) K/uL Lymph # (Auto) 1.92 (1.2-3.4) K/uL [place] # (Auto) 0.93 H (0.11-0.59) K/uL Eos # (Auto) 0.10 (0-0.5) K/uL Baso # (Auto) 0.04 (0-0.2) K/uL Sodium 139 (136-145) mmol/L Potassium 3.6 (3.5-5.1) mmol/L Chloride 107 (98-107) mmol/L Carbon Dioxide 29 (21-32) mmol/L Anion Gap 3.0 (3-11) BUN 11 (7-18) mg/dl Creatinine 0.67 (0.6-1.2) mg/dl Est Cr Clr Drug Dosing 59.0 ml/min Est GFR ( Amer) 101.1 Est GFR (Non-Af Amer) 87.2 BUN/Creatinine Ratio 16.0 (10-20) Glucose 122 H (70-99) mg/dl Calcium 8.4 L (8.5-10.1) mg/dl Prealbumin 13.0 L (20-40) mg/dl
--- NOTE | 2019-09-25 13:46 | Hospitalist Progress Note ---
Date of Service September 25, 2019 Assessment & Plan (1) Closed fracture of right hip: Patient lost lost her balance/slipped on the pavement-leading to acute nondisplaced inter-trochanteric fracture of proximal right femur Mechanical fall No prior complaint of dizzy spell lightheadedness or chest pain before or after fall Orthopedics consulted, appreciate input Status post ORIF of right hip POD #! Pain appears to be well controlled Patient remains stable hemodynamically Drop in hemoglobin 1411, postoperative acute blood loss anemia, expected Patient has no symptom of dizzy spell lightheadedness, vitals stable No indication for transfusion As per current guideline without any underlying coronary artery disease, PRBC transfusion indicated for large amount of hemorrhage or blood loss, hemoglobin less than 7 Patient continued to do PT OT CODE STATUS: Full code DVT prophylaxis: Subcu Lovenox Disposition: Referral made to rehab, possible transfer to [facility] tomorrow Subjective Patient had a good day today, able to walk on the hallway, back pain has been improved no fever chills no shortness of breath no chest pain or dyspnea on exertion Attending bowel movement today Physical Exam Constitutional: WD/WN, vitals as above no acute distress Eyes: + anicteric sclerae ENMT: external ear and nose normal, oropharynx normal Neck: trachea midline, no thyromegaly Respiratory: normal respiratory effort, lungs clear to auscultation Cardiovascular: RRR, no murmur, no edema Gastrointestinal (Abdomen): normal bowel sounds, soft, nontender, no hepatosplenomegaly Musculoskeletal: Hip: + surgical incision (Status post right hip surgery, bandage present) Skin: no rashes, warm and dry Neurologic: PERRL, EOMI, accommodation nl, no face palsy, no dysarthria Psychiatric: A+Ox3, euthymic affect Results & Data Vital Signs (Past 12 Hours) Vital Signs Temp Pulse Resp BP Pulse Ox 09/25/19 12:53 37.1 C 78 16 111/57 L 97 09/25/19 07:15 36.7 C 71 16 108/58 L 95 09/25/19 03:40 36.8 C 69 16 95/52 L 96 (1) Closed fracture of right hip Encounter type: initial encounter Qualified Code(s): S72.001A - Fracture of unspecified part of neck of right femur, initial encounter for closed fracture
--- NOTE | 2019-09-25 14:54 | Anesthesiology Progress Note ---
Date of Service September 25, 2019 Anesthesia Post Procedure Vital Signs Vital Signs: Temp Pulse Resp BP Pulse Ox 09/25/19 12:53 37.1 C 78 16 111/57 L 97 09/25/19 07:15 36.7 C 71 16 108/58 L 95 09/25/19 03:40 36.8 C 69 16 95/52 L 96 09/24/19 23:30 36.8 C 77 18 102/62 95 09/24/19 19:55 36.6 C 70 16 100/58 L 96 Pain Intensity Right Hip: Pain Intensity: 6 Notes Mental Status: alert / awake / arousable Patient Amnestic to Procedure: Yes Nausea / Vomiting: adequately controlled Pain: improving with treatment Airway Patency, RR, SpO2: stable & adequate BP & HR: stable & adequate Hydration State: stable & adequate Neuraxial Anesthesia: was administered and sensory block resolved Anesthetic Complications: no major complications apparent
[2019-09-25] MEDS: DOCUSATE SODIUM/SENNA 50/8.6MG TAB PO SCH (21:00)
[2019-09-25] MEDS: ENOXAPARIN INJ 30 MG/0.3 ML SYR SQ SCH (21:01)
[2019-09-26] MEDS: ACETAMINOPHEN 325 MG TAB PO PRN ×3 (01:53→23:23)
[2019-09-26] MEDS: MULTIVITAMIN TAB PO SCH (07:12)
[2019-09-26] MEDS: ASCORBIC ACID 500 MG TAB PO SCH ×2 (07:12→17:53)
--- NOTE | 2019-09-26 08:14 | Anesthesiology Progress Note ---
Date of Service September 26, 2019 Anesthesia Post Procedure Vital Signs Vital Signs: Temp Pulse Pulse Resp BP Pulse Ox Pulse Ox 09/26/19 07:59 36.9 C 75 16 119/63 97 09/26/19 00:00 96 09/25/19 23:20 37.1 C 85 16 122/74 96 09/25/19 15:36 37.1 C 88 17 121/69 96 09/25/19 12:53 37.1 C 78 16 111/57 L 97 Pain Intensity Right Hip: Pain Intensity: 3 Notes Mental Status: alert / awake / arousable and participated in evaluation Patient Amnestic to Procedure: Yes Nausea / Vomiting: adequately controlled Pain: adequately controlled Airway Patency, RR, SpO2: stable & adequate BP & HR: stable & adequate Hydration State: stable & adequate Neuraxial Anesthesia: was administered and sensory block resolved Anesthetic Complications: no major complications apparent and Pt Satisfied with anesthetic care
--- NOTE | 2019-09-26 08:18 | Hospitalist Progress Note ---
Date of Service September 26, 2019 Assessment & Plan (1) Closed fracture of right hip: Mechanical fall on 09/23/19 resulting in acute nondisplaced inter- trochanteric fracture of proximal right femur Post op day# 2 S/P ORIF right hip by Dr Pink Pt reports doing well with pain controlled and has been able to participate in PT -pain management per ortho -wound management per ortho -PT/OT as appropriate -DVT prophylaxis per ortho - SCDs -incentive spirometry -Hgb: 11.4 on 09/25/19 from 14 pre-op DVT prophylaxis: SCDs Disposition: per ortho. plan to go to rehab Supervising Physician Co-Signing Physician Notes : Attending addendum pt Seen and examined, care coordinated with Mikaela Long PA-C Patient ambulating with help of walker, not requiring any assistance, with minimum pain or discomfort in the right hip area No gait disturbance noted Complaint of shortness of breath no fever or chills Waiting to be transferred to rehab Physical exam: General: Alert awake oriented x3, no sign of distress HEENT: Sclera nonicteric, pupils bilateral equal reactive to light extraocular muscle intact Lungs: Clear to auscultate no wheeze or rales Cardiac : Regular S1 and S2 no murmur gallop Neuro: No focal deficit Assessment and plan Intertrochanteric fracture of right hip Status post fall Status post ORIF of right hip, patient has been recurrent recovering very well postoperatively Participating in PT OT Medically stable to transition to rehab when accepted Please refer to further documentation by Mikaela Long PA-C for discussion of other chronic issues Payton Vance MD Subjective Pt seen and examined. Sitting in bedside chair. Reports doing well and reports pain controlled. Eating and drinking well. reports passing flatus. States is awaiting placement for rehab. Denies fever/chills, diaphoresis, N/V/D, WHITE, dizziness, sy CP, SOB, abdominal pain, paresthesias, extremity edema, rashes, urinary symptoms. Review of Systems Review of Systems: All systems reviewed & are unremarkable except as noted in HPI & below Physical Exam Physical Exam: General: no distress, WDWN Head: normocephalic, atraumatic Eyes: conjunctiva non-injected, anicteric ENT: normal inspection external ears, nose, mucous membranes moist Neck: supple, trachea midline Lungs: clear, no respiratory distress, no wheezing/rhonchi/rales CV: RRR, no murmur, no pretibial edema Abd: normal BS, soft, non-tender Ext: no cyanosis, no calf tenderness; distal pulses intact Neuro: A&O x 3, no focal deficits noted, normal affect Skin: warm, dry Results & Data Vital Signs (Past 12 Hours) Vital Signs Temp Pulse Pulse Resp BP Pulse Ox Pulse Ox 09/26/19 07:59 36.9 C 75 16 119/63 97 09/26/19 00:00 96 09/25/19 23:20 37.1 C 85 16 122/74 96 (1) Closed fracture of right hip Encounter type: initial encounter Qualified Code(s): S72.001A - Fracture of unspecified part of neck of right femur, initial encounter for closed fracture
[2019-09-26] MEDS ORDERED: POLYETHYLENE (MIRALAX) 17 GM PACK PO ONE (10:45)
--- NOTE | 2019-09-26 11:05 | Orthopedic Progress Note ---
Date of Service September 26, 2019 Assessment & Plan (1) Intertrochanteric fracture of right hip: Plan for snf facility. Continue PT and OT. Lovenox.Discharge is pending bed availability and and insurance authorization. She will follow-up in 10 days 2 weeks. She will be on stool softener pain medicine and her regular meds and Lovenox. She can weight-bear as tolerated with walker. We talked about bathing instructions and activity restrictions. Present on Admission?: Yes (2) Acute blood loss anemia: Stable and asymptomatic. Requires no treatment. Present on Admission?: No (3) Tobacco abuse: Recommend smoking cessation and will provide literature.Offered NicoDerm patches but she will use Nicorette gum. Present on Admission?: Yes (4) Vitamin D deficiency: Supplementation. Present on Admission?: Yes Subjective Sitting up in bed. No problems reported. Pain well controlled. Physical Exam Physical Exam: Dressing change. Minimal swelling. No drainage. Distal neurovascular intact. Able to do straight leg raise and bend knee to about 90 degrees. Results & Data Vital Signs (Past 12 Hours) Vital Signs Temp Pulse Pulse Resp BP Pulse Ox Pulse Ox 09/26/19 08:16 97 09/26/19 07:59 36.9 C 75 16 119/63 97 09/26/19 00:00 09/25/19 23:20 37.1 C 85 16 122/74 96 Pulse Ox 09/26/19 08:16 09/26/19 07:59 09/26/19 00:00 96 09/25/19 23:20
[2019-09-26] MEDS: BISACODYL 10 MG SUPP PR SCH (11:12)
[2019-09-26] MEDS: DOCUSATE SODIUM/SENNA 50/8.6MG TAB PO SCH (21:07)
[2019-09-26] MEDS: ENOXAPARIN INJ 30 MG/0.3 ML SYR SQ SCH (21:07)
[2019-09-27 06:27] LABS: Creatinine Clr Calc Pharmacy 60.8 ml/min; Est GFR (African American) 102.1; Est GFR (Non-African American) 88.1
[2019-09-27] MEDS: MULTIVITAMIN TAB PO SCH (08:37)
[2019-09-27] MEDS: ASCORBIC ACID 500 MG TAB PO SCH (08:37)
[2019-09-27] MEDS: BISACODYL 10 MG SUPP PR SCH (08:38)
--- NOTE | 2019-09-27 09:46 | Orthopedic Progress Note ---
Date of Service September 27, 2019 Assessment & Plan (1) Intertrochanteric fracture of right hip: Plan for intermediate facility. Waiting on [facility] approving insurance coverage. Hope to be DC today. Continue PT and OT. Lovenox for DVT prophylaxis for at least 2 wks until f/u in office. Appointment made to see Ana Luisa Harper PA-C on 10-07-19 at 10:30am. She will be on stool softener, pain medicine, her regular meds, and Lovenox. She can weight-bear as tolerated with walker. While still in hospital, dressing changes daily if needed by nursing. On POD 4, she can remove dressings and if dry leave open to air and shower normally. (2) Acute blood loss anemia: Stable and asymptomatic. Requires no treatment. (3) Tobacco abuse: Recommend smoking cessation and will provide literature.Offered NicoDerm patches but she will use Nicorette gum. (4) Vitamin D deficiency: Supplementation. Subjective Patient sitting in chair. She is ready to be discharged. Waiting on [facility] to approve her insurance coverage. Pain controlled. Tolerating PO pain meds when needed. Tolerating PO diet and fluids. Using restroom. Able to void. Working with physical therapy WBAT with walker. Denies f/c/s, CP, SOB. Physical Exam Physical Exam: Sitting comfortably in bedside chair watching TV. Right hip dressing C/D/I. Minimal pain with AROM hip flexion/abduction/adduction. No pain with knee motion. NV intact B LE. Sensation intact to light touch. Able to wiggle toes and ankles. Calves soft. Trace pitting edema R LE. Pulses palpable. Results & Data Vital Signs (Past 12 Hours) Vital Signs Temp Pulse Resp BP Pulse Ox 09/27/19 07:14 36.6 C 72 16 130/76 98 09/26/19 23:10 36.8 C 83 14 129/74 94
--- NOTE | 2019-09-28 09:32 | Discharge Summary ---
Date of Service September 27, 2019 Principal Diagnosis Acute nondisplaced intratrochanteric versus basicervical fracture of the proximal right femur Discharge Data Allergies Allergy/AdvReac Type Severity Reaction Status Date / Time Sulfa (Sulfonamide Allergy Unknown . Unverified 09/23/19 16:48 Antibiotics) Consultations 09/23/19 18:09 ED Decision to Admit Stat 09/23/19 19:21 Consult Hospitalist Stat 09/23/19 20:22 Consult Case Management - Discharge Planning Routine 09/24/19 12:08 Consult Case Management - Discharge Planning Routine Procedures Performed Operation Date: 09/24/19 10:30 Actual Procedures Right short intramedullary Trochanteric Fixation Nail (Right) - Taiwo Pink MD Ordered Studies 09/23/19 17:06 CT hip RT wo con Stat 09/24/19 07:00 FL fluoroscopy <1hr Routine FL hip RT 2-3V Routine Hospital Course (1) Intertrochanteric fracture of right hip: The patient is a 74-year-old female who 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 Elbow was fine. She was able to walk afterwards but had significant right hip pain. She was brought to the ER where evaluation revealed a fracture. Findings were discussed. Dr Pink recommended admission to the hospital and surgery. Surgery recommended to promote mobility and prevent fracture displacement. Risks of nonsurgical management were discussed. An informed consent was obtained. She was educated about the surgical procedure, risks, benefits, rehab and recovery. She was admitted to [facility] n.p.o. after midnight with medicine consulting. SCDs for DVT prophylaxis. On 09-25-19 patient underwent Right short intramedullary Trochanteric Nail Fixation. Surgery without complication. She was transferred back to the floor. DVT prophylaxis included SCDs and lovenox. She received post-op Abx. On POD 1, pain appears to be well controlled. Patient remains stable hemodynamically. Drop in hemoglobin 1411, postoperative acute blood loss anemia, expected. Patient has no symptom of dizzy spell lightheadedness, vitals stable. No indication for transfusion. No isaias to be Vitamin D Deficient and supplementation was discussed. Her dressing was changed without wound concerns. By POD 2 patient deemed stable for discharge. She was tolerating regular diet, PO fluids, and PO pain medication. Was constipated but denied abdominal pain. Participating in PT with WBAT with walker. Arrangements were made to [facility]. She was discharged with oxycodone, tramadol, tylenol, docusate sodium, vitamin C, multi vitamin, nicotine gum, and lovenox 30mg SQ until f/u in 2wks. Isaias hose on during day and removed at night, until f/u in 2wks. Incision can be open to air on 09-28-19 and patient can shower. She was provided with further post-op instructions as well. Please see below for Discharge Instructions. She was scheduled to follow-up in office on 10-07-19 with Ana Luisa Harper PA-C. Plan for [facility] facility. Waiting on [facility] approving insurance coverage. Hope to be DC today. Continue PT and OT. Lovenox for DVT prophylaxis for at least 2 wks until f/u in office. Appointment made to see Ana Luisa Harper PA-C on 10-07-19 at 10:30am. She will be on stool softener, pain medicine, her regular meds, and Lovenox. She can weight-bear as tolerated with walker. While still in hospital, dressing changes daily if needed by nursing. On POD 4, she can remove dressings and if dry leave open to air and shower normally. (2) Acute blood loss anemia: Stable and asymptomatic. Requires no treatment. (3) Tobacco abuse: Recommend smoking cessation and will provide literature.Offered NicoDerm patches but she will use Nicorette gum. (4) Vitamin D deficiency: Supplementation. Total Time Total Time Spent Total Time Spent (In Minutes): 20 min Discharge Plan Discharge Items Patient Disposition: Transfer [facility] Reason For Visit: RIGHT HIP FRACTURE Discharge Diagnosis: right intertrochanteric hip fracture Condition on Discharge: Good Activity: Per Instructions section Bathing Comment: On 09-29, if dry, may remove dressing and shower. Cover if draining. Exercise Comment: per therapy Driving/Machine Use: wait until seen at follow-up appointment Weightbearing: Right weightbearing Weightbearing Comment: weight bearing as tolerated with walker Non-emergency contact: Surgeon Call non-emergency contact if: you have any medication questions, your temperature is above 101, your wound has increased redness and your wound has increased drainage Follow-up/Referrals: Samara Harper PA-C [Physician Head Cager] - 10/07/19 10:30 am PCP,NO [Primary Care Provider] - Diet: Regular Addtl Attending Provider Instructions: Dressing change to right hip incision daily and as needed. May leave open to air beginning 09/28/19 if no drainage. On 09/28/19 may shower, do not scrub or soap incision, may let soap and water run over incision. Pat incision dry, redress as needed. Ice to right hip as needed for pain/swelling Elevate right lower extremity above heart to relieve pain/swelling. Allowed for range of motion right hip and right knee. No hip precautions necessary. May weight bear as tolerated right lower extremity with the assistance of a walker. Physical therapy/occupational therapy - may do range of motion, strengthening, activities as tolerated Isaias stockings to bilateral lower extremities. On during the day, off at night. Lovenox as ordered for DVT prophylaxis. Pain medication as prescribed. Stool softener as needed. Please call our office at [phone] with any questions or concerns. Pending Studies at Discharge: No Stand-Alone Forms: My [facility] Skilled Items Patient informed of condition?: Yes DNR: No Discharge Level of Care: Skilled Communicable Disease: No Discharge Prognosis: Stable Lines: None Urinary Catheter: No Medications and DC Order Prescriptions: New tramadol 50 mg Tablet 50 - 100 mg PO Q4H PRN (Reason: pain) Qty: 30 RF: 0 nicotine (polacrilex) [Nicorette] 2 mg gum 2 mg BUCCAL Q6H PRN (Reason: nicotine cravings) Qty: 20 RF: 0 docusate sodium 100 mg Capsule 100 mg PO BID Qty: 30 RF: 0 enoxaparin [Lovenox] 30 mg/0.3 mL syringe 30 mg SQ DAILY 10 Days Qty: 10 RF: 0 tramadol 50 mg Tablet 50 - 100 mg PO Q6H PRN (Reason: pain) Qty: 30 RF: 0 acetaminophen [Tylenol Extra Strength] 500 mg tablet 500 - 1,000 mg PO Q8H 30 Days Qty: 180 RF: 0 oxycodone 5 mg tablet 5 mg PO Q6H PRN (Reason: pain) Qty: 20 RF: 0 ascorbic acid (vitamin C) [Vitamin C] 500 mg tablet 500 mg PO BID 30 Days Qty: 60 RF: 0 multivitamin tablet 1 tab PO DAILY Qty: 30 RF: 0 Discharge Orders: Discharge Order (Routine); Ordered 09/27/19 Ordered By: Deanna Ortiz/Other Patient Handouts: Surgery Prevent DVT After, Quit Smoking Plan, Quit Smoking Get Support Admission Data Admit Date/Time: 09/23/19 19:37 Attending Provider: Taiwo Pink Admit Provider: Taiwo Pink Primary Care Provider: PCP,NO Other Providers: Payton Vance ; Taiwo Pink ; Bayron Beard ; Brian Aldridge Other Interventions: Discharge Summary Assessment (RN) Last Done: 09/27/19 15:32 DC Date/Time DO NOT enter until pt leaves facility: 09/27/19 15:38
== END 2019-09-27 15:38 | DRG 481 ==
LOC: ED 15:22 → 3E 19:37